=== PATIENT | male | born 1970 | race Caucasian/White ===

== ENCOUNTER 2024-09-29 20:51 | Emergency (ER) | payer MEDICAID ==
[~2024-09-29] VITALS: Ht 167.6 cm; Wt 75.6 kg
[2024-09-29 21:11] VITALS: O2SAT 100
[2024-09-29 21:13] VITALS: BP 108/73; PULSE 100; RESP 13; TEMP 37; O2SAT 98
== END 2024-09-30 00:51 | disposition left against medical advice (07) ==
LOC: ER 20:51
DX: T18.5XXA Foreign body in anus and rectum, initial encounter (principal); Z53.21 Procedure and treatment not carried out due to patient leaving prior to being seen by health care provider; X58.XXXA Exposure to other specified factors, initial encounter; Y93.89 Activity, other specified; Y92.89 Other specified places as the place of occurrence of the external cause; Y99.8 Other external cause status